=== PATIENT | female | born 1960 | race Caucasian/White ===

== ENCOUNTER 2018-07-04 12:28 | Emergency (ER) | payer OTHER ==
[~2018-07-04] VITALS: Ht 162.6 cm; Wt 76.2 kg
[2018-07-04] MEDS ORDERED: METOCLOPRAMIDE INJ 10 MG/2 ML (REGLAN) IVP STA (14:09)
[2018-07-04] MEDS ORDERED: diphenhydrAMINE 50 MG/ML INJ (BENADRYL) IVP STA (14:09)
[2018-07-04] MEDS ORDERED: HOLD METFORMIN - RECEIVED CONTRAST 20 ML VIAL IV SCH (14:15)
[2018-07-04] MEDS ORDERED: IOHEXOL 350 MG/ML 150 ML (OMNIPAQUE 350) VIAL IV ONE (14:15)
[2018-07-04] MEDS ORDERED: NS IV 1000 ML 1,000 ML IV SCH (14:15)
[2018-07-04] MEDS ORDERED: NS 100 ML (IVPB) BAG IV ONE (14:15)
[2018-07-04] MEDS ORDERED: CATHETER FLUSH 10 ML SYR IV PRN (14:15)
--- NOTE | 2018-07-04 14:19 | ED Headache ---
General Chief Complaint: Head/Cervical Problems Stated Complaint: HEADACHE Nursing Triage Note: PT REPORTS A HEADACHE STARTED MONDAY ON THE TOP OF HER HEAD AND SHE LOST PARTIAL VISION IN HER RIGHT EYE FOR ABOUT 15 MINS. MONDAY NO HEADACHE UNTIL ABOUT 1100. SOME FUZZY VISION OCCURED. MONDAY DUARHEA AND A HEADACHE. Nursing Sepsis Screen: No Definite Risk Source: patient History of Present Illness Date Seen by Provider: Jul 04, 2018 Time Seen by Provider: 13:52 This is a 57-year-old female with a history of hyperlipidemia who complains of a headache intermittently for 3 days. She was at work when she describes abrupt onset of a headache at the top of the head, nonradiating, no associated neck pain or neck stiffness. 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 She states that the headache resolved yesterday but then she woke again with a headache today. Also associated with the headache is intermittent waviness of the visual field in the right eye. She went to her primary care clinic but there was no provider available so she came to our emergency department. There is been no loss of consciousness or vomiting. No fever. She has not had weakness or numbness or tingling in the extremities. Today she did have multiple episodes of nonbloody non-melanotic diarrhea. No abdominal pain. No other symptoms. Denies any known history of aneurysms for her or her family. Denies smoking or drug use. Allergies and Home Medications Allergies Coded Allergies: No Known Drug Allergies (Unverified , 07/04/18) Home Medications Butalb/Acetaminophen/Caffeine 1 Each Tablet, 1 EACH PO BID PRN for HEADACHE Prescribed by: MARITZA DAVILA on 07/04/18 0131 Patient Home Medication List Home Medication List Reviewed: Yes Review of Systems Review of Systems Constitutional: no symptoms reported Eyes: See HPI Ears, Nose, Mouth, Throat: no symptoms reported Respiratory: no symptoms reported Cardiovascular: no symptoms reported Gastrointestinal: see HPI Genitourinary: no symptoms reported Musculoskeletal: no symptoms reported Skin: no symptoms reported Psychiatric/Neurological: See HPI Past Pzcnozf-Ninhse-Ujvyph Hx Past Med/Social Hx: Reviewed Nursing Past Med/Soc Hx Patient Social History Alcohol Use: Denies Use Recreational Drug Use: No 2nd Hand Smoke Exposure: No Recent Foreign Travel: No Contact w/Someone Who Travel: No Recent Infectious Disease Expo: No Recent Hopitalizations: No Physical Abuse: No Sexual Abuse: No Mistreated: No Fear: No Seasonal Allergies Seasonal Allergies: No Past Medical History Surgeries: No Respiratory: No Cardiac: No Neurological: No Genitourinary: No Gastrointestinal: No Musculoskeletal: No Endocrine: No HEENT: No Cancer: No Psychosocial: No Integumentary: No Blood Disorders: No Physical Exam Vital Signs Vital Signs - First Documented 07/04/18 12:38 Temp 97.0 Pulse 70 Resp 18 B/P (MAP) 135/77 (96) O2 Delivery Room Air Capillary Refill : Less Than 3 Seconds Height, Weight, BMI Height: 5'4.00" Weight: 168lbs. oz. 76.697181mn; BMI Method:Stated General Appearance: no apparent distress (no visible discomfort, sitting in a chair with the lights on normally) HEENT: PERRL/EOMI, other (no conjunctival injection, no scleral icterus, funduscopic exam is limited however papilledema was not appreciable nor were obvious hemorrhages, no tenderness or palpable cord over temporal arteries) Neck: full range of motion, supple Cardiovascular: normal peripheral pulses, regular rate, rhythm Respiratory: lungs clear Gastrointestinal: non tender, soft Psychiatric: alert, oriented x 3; No depressed affect Crainal Nerves: normal hearing, normal speech, PERRL; No facial asymmetry, No facial paresthesias, No gaze palsy, No tongue deviation to R, No tongue deviation to L Coordination/Gait: normal finger to nose, normal gait Motor/Sensory: no motor deficit, no sensory deficit Skin: warm/dry Progress/Results/Core Measures Results/Orders Lab Results Laboratory Tests Test 07/04/18 14:26 Range/Units White Blood Count 7.4 4.3-11.0 10^3/uL Red Blood Count 4.62 4.35-5.85 10^6/uL Hemoglobin 13.9 11.5-16.0 G/DL Hematocrit 42 35-52 % Mean Corpuscular Volume 90 80-99 FL Mean Corpuscular Hemoglobin 30 25-34 PG Mean Corpuscular Hemoglobin Concent 33 32-36 G/DL Red Cell Distribution Width 12.3 10.0-14.5 % Platelet Count 291 130-400 10^3/uL Mean Platelet Volume 10.5 H 7.4-10.4 FL Erythrocyte Sedimentation Rate 12 0-30 MM/HR Sodium Level 139 135-145 MMOL/L Potassium Level 3.9 3.6-5.0 MMOL/L Chloride Level 98 98-107 MMOL/L Carbon Dioxide Level 30 21-32 MMOL/L Anion Gap 11 5-14 MMOL/L Blood Urea Nitrogen 27 H 7-18 MG/DL Creatinine 0.86 0.60-1.30 MG/DL Estimat Glomerular Filtration Rate > 60 BUN/Creatinine Ratio 31 Glucose Level 99 70-105 MG/DL Calcium Level 9.9 8.5-10.1 MG/DL C-Reactive Protein High Sensitivity 0.54 H 0.00-0.50 MG/DL Serum Test, Qualitative NEGATIVE NEGATIVE My Orders Orders - MARITZA DAVILA DO Ct Angio Head W Wo (07/04/18 14:07) Cbc No Diff (07/04/18 14:07) Basic Metabolic Panel (07/04/18 14:07) Erythrocyte Sedimentation Rate (07/04/18 14:07) Hs C Reactive Protein (07/04/18 14:07) Hcg,Qualitative Serum (07/04/18 14:07) Ns Iv 1000 Ml (Sodium Chloride 0.9%) (07/04/18 14:15) Metoclopramide Injection (Reglan Injecti (07/04/18 14:09) Diphenhydramine Injection (Benadryl Inje (07/04/18 14:09) Iohexol Injection (Omnipaque 350 Mg/Ml 1 (07/04/18 14:15) Received Contrast (Hold Metformin- Contr (07/04/18 14:15) Sodium Chloride Flush (Catheter Flush Sy (07/04/18 14:15) Ns (Ivpb) (Sodium Chloride 0.9% Ivpb Bag (07/04/18 14:15) Medications Given in ED Current Medications Medications Dose Ordered Sig/Julian Route Start Time Stop Time Status Last Admin Dose Admin Iohexol 120 ml ONCE ONCE IV 07/04/18 14:15 07/04/18 14:33 DC 07/04/18 15:20 120 ML Sodium Chloride 10 ml NEEDED PRN IV 07/04/18 14:15 07/04/18 15:20 10 ML Sodium Chloride 100 ml ONCE ONCE IV 07/04/18 14:15 07/04/18 14:33 DC 07/04/18 15:20 100 ML Vital Signs/I&O 07/04/18 12:38 Temp 97.0 Pulse 70 Resp 18 B/P (MAP) 135/77 (96) O2 Delivery Room Air Blood Pressure Mean: 96 Progress Progress Note #1: Progress Note This is a 57-year-old female who complains of an intermittent headache over the last 3 days. Historical features concerning for subarachnoid hemorrhage include some degree of exertion at onset, abrupt onset. History of features potentially concerning for temporal arteritis include visual obscuration. Her visual symptom could also be consistent with a migraine, I feel an ischemic stroke is less likely given no other neurologic symptoms. I spoke with patient about these diagnoses, I spoke with her and her about the workup for these. She prefers that we obtain a CT angiogram rather than perform lumbar puncture which I feel is reasonable, she understands this can complicate treatment downstream but wants to proceed. She is agreeable with fluids, Reglan, Benadryl now. Progress Note #2: Progress Note Patient has remained asymptomatic for hours of observation in the ER. ESR and CRP are send outs at this facility. CRP is minimally elevated above normal, ESR is normal, platelet count is normal, and overall suspicion for temporal arteritis is somewhat low. Patient has follow-up scheduled already with an overhead crane operator, we spoke at length about return precautions, she would like to go home. I wrote a prescription for a short course of Fioricet to be used as needed, we spoke about keeping overall daily dose of acetaminophen under 4000 mg , checking [id number] medicines for the presence of acetaminophen. Departure Impression Primary Impression: Headache Additional Impressions: Diarrhea Visual field scotoma of right eye Disposition: 01 HOME, SELF-CARE Condition: Stable Departure-Patient Inst. Referrals: MARIKA STEVENS (PCP) Primary Care Physician Patient Instructions: Headache, Adult Scripts Butalb/Acetaminophen/Caffeine ([id number]-Zkir 50-325-40) 1 Each Tablet 1 EACH PO BID PRN for HEADACHE for 10 Days, #20 TAB Prov: MARITZA DAVILA DO 07/04/18 Work/School Note: Work Release Form Date Seen in the Emergency Department: Jul 04, 2018 Return to Work: Jul 05, 2018 Restrictions: No Restrictions MARITZA DAVILA DO Jul 04, 2018 14:19
[2018-07-04 14:38] LABS: HEMOGLOBIN 13.9 G/DL (11.5-16.0); MEAN PLATELET VOLUME 10.5 FL (7.4-10.4); RED CELL DISTRIBUTION WIDTH 12.3 % (10.0-14.5); WHITE BLOOD COUNT 7.4 10^3/uL (4.3-11.0)
[2018-07-04 15:00] LABS: BUN/CREATININE RATIO 31; CALCIUM 9.9 MG/DL (8.5-10.1); CARBON DIOXIDE 30 MMOL/L (21-32); CHLORIDE 98 MMOL/L (98-107); CREATININE SERUM 0.86 MG/DL (0.60-1.30); GFR ESTIMATED > 60; GLUCOSE 99 MG/DL (70-105); POTASSIUM 3.9 MMOL/L (3.6-5.0); SODIUM 139 MMOL/L (135-145)
--- NOTE | 2018-07-04 15:59 | Diagnostic Imaging Report ---
PROCEDURE: CT angiography of the head with and without contrast. TECHNIQUE: Noncontrast CT of the head was obtained. Subsequently, after intravenous administration of contrast, thin section axial CT angiography of the head was performed. Source data was reformatted into multiple MIP reformats. Delayed postcontrast acquisition of the head was also acquired. Auto Exposure Controls were utilized during the CT exam to meet ALARA standards for radiation dose reduction. INDICATION: Headaches for three days with partial vision loss in the right eye. COMPARISON: No prior studies are available for comparison. FINDINGS: Precontrast imaging through the brain demonstrates the ventricles and sulci to be within normal limits. No sulcal effacement is seen. There is no midline shift. No acute intra-axial or extra-axial hemorrhage is detected. Cisterns are patent. Visualized paranasal sinuses are clear. The distal internal carotid arteries are widely patent. There is normal opacification of the anterior, middle and posterior cerebral arteries. The basilar artery is widely patent. Left vertebral artery is dominant. No intracranial stenosis or occlusion is seen. No thromboembolism is identified. No definite aneurysm is identified. IMPRESSION: Unremarkable CT angiogram of the head. Dictated by: Dictated on workstation # [id number]
[2018-07-04] MEDS ORDERED: BUTA1TAB9 PO (17:39)
[2018-07-04 17:50] VITALS: BP 128/72
== END 2018-07-04 17:53 | disposition home or self-care (01) ==
LOC: ER FS 12:32
DX: H53.411 Scotoma involving central area, right eye (principal); R51 Headache; R19.7 Diarrhea, unspecified; E78.5 Hyperlipidemia, unspecified
CPT/HCPCS: 36415; 70496; 80048; 84703; 85027; 85652; 86141; 96361; 96374; 96375

== ENCOUNTER → 2020-08-18 | Outpatient (CLI) | payer OTHER ==
[~2020-08-18] MED LIST: BUTA-235 PO
--- NOTE | 2020-08-18 20:47 | Diagnostic Imaging Report ---
INDICATION: Routine screening. COMPARISON is made prior mammogram from 01/19/2017. 2-D and 3-D bilateral screening mammography was performed with CAD. Both breasts are heterogeneously dense, limiting the sensitivity of mammography. The parenchymal pattern is stable. No mass or malignant appearing microcalcifications are seen. Axillae are unremarkable. IMPRESSION: BI-RADS Category 1 No mammographic features suspicious for malignancy are identified. ACR BI-RADS Category 1: Negative. Result letter will be mailed to the patient. Note: At least 10% of breast cancer is not imaged by mammography. Dictated by: Dictated on workstation # [id number]
== END ==
LOC: RAD 09:52
PROVIDERS: ATTEND Nurse Practitioner
DX: Z12.31 Encounter for screening mammogram for malignant neoplasm of breast (principal)
CPT/HCPCS: 77063; 77067

== ENCOUNTER 2020-09-30 05:35 | Outpatient (CLI) | payer OTHER ==
[~2020-09-30] VITALS: Ht 162.6 cm; Wt 81.9 kg
[2020-10-01] MEDS ORDERED: OMEP20TA7 PO (08:51)
[2020-10-07] MEDS ORDERED: SUCR1TAB36 PO (13:37)
== END 2020-10-01 13:46 | disposition home or self-care (01) ==
LOC: PREOP 05:35
PROVIDERS: ATTEND Surgery
DX: Z01.818 Encounter for other preprocedural examination (principal)

== ENCOUNTER → 2020-10-02 | Outpatient (CLI) | payer OTHER ==
[~2020-10-02] MED LIST changes: +OMEP20TA7 PO
== END ==
LOC: LAB FS 09:49
PROVIDERS: ATTEND Surgery
DX: Z01.812 Encounter for preprocedural laboratory examination (principal); K21.9 Gastro-esophageal reflux disease without esophagitis; Z20.822 Contact with and (suspected) exposure to COVID-19
CPT/HCPCS: 87635

== ENCOUNTER 2020-10-07 11:24 | Day surgery (SDC) | payer OTHER ==
[~2020-10-07] VITALS: Ht 162.6 cm; Wt 81.9 kg
[2020-10-07] MEDS ORDERED: LACTATED RINGERS 1,000 ML IV STA (11:28)
[2020-10-07] MEDS ORDERED: HURRICAINE EXT TUBE (BENZOCAINE) XX PRN (11:30)
--- NOTE | 2020-10-07 11:40 | Progress Note-Pre Operative ---
Pre-Operative Progress Note H&P Reviewed The H&P was reviewed, patient examined and no changes noted. Time Seen by Provider: 11:36 Date H&P Reviewed: Oct 07, 2020 Time H&P Reviewed: 11:36 Pre-Operative Diagnosis: Epigastric pain, dysphagia GO BORGES DO Oct 07, 2020 11:40
[2020-10-07 11:45] VITALS: BP 130/82
[2020-10-07] MEDS ORDERED: proPOfol 200 MG/20 ML (DIPRIVAN) VIAL IV ONE (12:48)
[2020-10-07 13:15] VITALS: BP 130/81
[2020-10-07 13:20] VITALS: BP 127/82
--- NOTE | 2020-10-07 13:32 | Anesthesia-General Post-Op ---
MAC Patient Condition Mental Status/LOC: Same as Preop Cardiovascular: Satisfactory Nausea/Vomiting: Absent Respiratory: Satisfactory Pain: Controlled Complications: Absent Post Op Complications Complications None Follow Up Care/Instructions Patient Instructions None needed. Anesthesiology Discharge Order Discharge Order Patient is doing well, no complaints, stable vital signs, no apparent adverse anesthesia problems. No complications reported per nursing. MINERVA FOY CRNA Oct 07, 2020 13:32
--- NOTE | 2020-10-07 13:36 | Progress Note-Post Operative ---
Post-Operative Progess Note Surgeon (s)/Riveter Pneumatic (s) Surgeon GO BORGES DO Riveter Pneumatic: none Pre-Operative Diagnosis Epigastric pain, dysphagia Post-Operative Diagnosis Duodenitis Antral ulcer Hiatal hernia esophagitis Procedure & Operative Findings Date of Procedure 10/07/20 Procedure Performed/Findings PROCEDURE NOTE: After informed consent was obtained, the patient was brought to the endoscopy suite, placed in bed in left lateral decubitus position. She was administered IV sedation by the CULTURAL HISTORIAN who then monitored vitals the entire time, heart rate, blood pressure and pulse ox and the scope was inserted down the mouth through the esophagus into the stomach. On the way down, noted some mild esophagitis, took a picture, pushed into the stomach, pushed past the antrum into the duodenum. Duodenum had inflammation and seemed to maybe have a stricture/tight turn between 2nd and 3rd portion. Pulled back and did a biopsy of of the duodenum and then one of the antrum. I saw an ulcer near the antrum and did a biopsy of it as well. I then retroflexed the scope, saw hiatal hernia, took a picture of this and then pulled the scope into the GE junction, took another picture of the hiatal hernia and then did a biopsy of the GE junction. Pushed the scope back into the stomach, suctioned all the air out of the stomach. At this point pulled the scope up the esophagus and out the mouth. I took pictures on the way up the esophagus and did not see anything that could cause dysphagia. The patient tolerated the procedure, and she recovered in endoscopy suite. Anesthesia Type IV sedation by CULTURAL HISTORIAN Estimated Blood Loss Estimated blood loss (mL): scant Specimens/Packing Specimens Removed duodenal bx antral bx antral ulcer bx GE jxn bx x 2 GO BORGES DO Oct 07, 2020 13:36
[2020-10-07] MEDS ORDERED: SUCR1TAB36 PO (13:37)
--- NOTE | 2020-10-07 13:37 | Endoscopy Discharge Instruct ---
Endo Procedure/Findings Findings 1.: Duodenal Ulcer 2.: Gastric Ulcer 3.: Hiatal Hernia Discharge Instructions - Activity: You might feel a little sleepy until tomorrow. This is due to the medicine you received to relax you. Until tomorrow, you should: NOT drive a car, operate machinery or power tools. NOT drink any alcoholic beverages. NOT make any important decisions or sign importortant papers. Do not return to work until tomorrow, unless otherwise instructed. Resume previous activities tomorrow. Diet: Start by taking liquids. If you tolerate liquids, advance to solid food. 1.: EGD in 6-8 weeks Notify Physician - If you experience excessive bleeding, unusual abdominal pain, fever, or chest pain, contact your doctor immediately. GO BORGES DO Oct 07, 2020 13:37
[2020-10-07 13:50] VITALS: BP 146/86
[2020-10-07 14:08] VITALS: BP 127/82
== END 2020-10-07 14:08 | disposition home or self-care (01) ==
LOC: ENDO 11:24
PROVIDERS: ATTEND Surgery
DX: K29.80 Duodenitis without bleeding (principal); K25.9 Gastric ulcer, unspecified as acute or chronic, without hemorrhage or perforation; K44.9 Diaphragmatic hernia without obstruction or gangrene; K31.9 Disease of stomach and duodenum, unspecified; K21.9 Gastro-esophageal reflux disease without esophagitis; E66.9 Obesity, unspecified; E78.00 Pure hypercholesterolemia, unspecified; Z79.899 Other long term (current) drug therapy; Z68.31 Body mass index [BMI] 31.0-31.9, adult; Z87.891 Personal history of nicotine dependence